=== PATIENT | male | born 2000 | race Caucasian/White ===

== ENCOUNTER 2021-09-09 10:19 | Emergency (ER) | payer OTHER, SELFPAY ==
[2021-09-09] MEDS: TETRACAINE 0.5% OPHTH 1 DROP EYE-LEFT ×2 (10:35)
[2021-09-09] MEDS: GENTAMICIN 0.3% OPHTH 1 DROP EYE-LEFT (10:35)
[2021-09-09] MEDS: FLUORESCEIN SODIUM TOPICAL STRIP 1 STRIP EYE-LEFT (10:35)
[2021-09-09 10:39] VITALS: BP 145/94; PULSE 97; RESP 16; TEMP 36.3; O2SAT 97; BMI 25.0
--- NOTE | 2021-09-09 10:54 | ED.GENADULT ---
HPI - General Adult General Time Seen by Provider: 10:53 Date Seen: 09/09/21 Chief complaint: Eye Problems Stated complaint: Irritation left eye Time Seen by Provider: 09/09/21 10:40 Source: patient Mode of arrival: ambulatory Limitations: no limitations History of Present Illness HPI narrative: Patient is a 20 year white male who has had a contact in over the last month took them out when his left eye became red it has been irritated and scratched scratchy feeling. His gross visual acuity is good he has no significant pain. Denies foreign body sensation. Was bothered by the redness and irritation presents to the ED. Related Data Home Medications Medication Instructions Recorded Confirmed No Known Home Medications 09/09/21 09/09/21 Allergies Allergy/AdvReac Type Severity Reaction Status Date / Time No Known Drug Allergies Allergy Verified 09/09/21 10:38 Review of Systems Status of ROS: Reports: 6 or more systems reviewed and unremarkable except as noted in History and below Exam Narrative: Exam Narrative: Objective: The patient's gross visual acuity is fairly normal in left eye, he does report a little bit of blurriness, his left eye conjunctiva is reddened after anesthetic drops placed and fluorescein staining done no foreign body or corneal abrasion could be noted. Gentamicin ophthalmic drop was placed x1 Const: Vital Signs, click to edit/add: Vital Signs - 24 hr 09/09/21 10:39 Temperature 97.4 F L Pulse Rate [Pulse Oximeter] 97 Respiratory Rate 16 Blood Pressure [Ri ght Upper Arm] 145/94 H Pulse Oximetry 97 Course Vital Signs Vital signs: Initial Vital Signs Temperature 97.4 F L 09/09/21 10:39 Temperature Source Temporal Artery Scan 09/09/21 10:39 Pulse Rate 97 09/09/21 10:39 Respiratory Rate 16 09/09/21 10:39 Blood Pressure 145/94 H 09/09/21 10:39 Blood Pressure Mean 111 09/09/21 10:39 Blood Pressure Position Sitting 09/09/21 10:39 Pulse Oximetry 97 09/09/21 10:39 Oxygen Delivery Method 09/09/21 10:39 Vital Signs Temperature 97.4 F L 09/09/21 10:39 Pulse Rate 97 09/09/21 10:39 Respiratory Rate 16 09/09/21 10:39 Blood Pressure 145/94 H 09/09/21 10:39 Pulse Oximetry 97 09/09/21 10:39 Temperature 97.4 F L 09/09/21 10:39 Pulse Rate 97 09/09/21 10:39 Respiratory Rate 16 09/09/21 10:39 Blood Pressure 145/94 H 09/09/21 10:39 Pulse Oximetry 97 09/09/21 10:39 Medical Decision Making MDM Narrative Medical decision making narrative: The patient has conjunctivitis of the left eye, no evidence of corneal abrasion on fluorescein staining, no evidence of foreign body. He will keep his contacts out for the next week, and use gentamicin eye drops 1 drop t.i.d. to the left eye x4 5 days. He will if not improved in the next 48 hours be seen by Optometry. He and his family are comfortable plan. Tylenol Advil as needed, he reports he is up-to-date on immunizations Discharge Plan Discharge Clinical Impression: Bacterial conjunctivitis Patient Disposition: Home w/ Parent or Adult Condition: Stable Additional Instructions: Patient will follow-up with optometry in the next 24 hours if not improving, keep his contacts out for a week, avoid trauma to the eye for the next several hours as it has been anesthetized. Tylenol or Advil as needed, gentamicin drops 1 drop t.i.d. to the left eye x5 days, medication dispensed from the eye tray. Activity Level: Activity as Tolerated Prescriptions: No Action No Known Home Medications 0RF Follow Up/Referrals: Provider,Not a Local [Primary Care Provider] - Stand Alone Forms: [employer] Info Instructions
== END 2021-09-09 11:10 ==
PROVIDERS: Emergency Provider Family Medicine
DX: H10.022 Other mucopurulent conjunctivitis, left eye (principal)
CPT/HCPCS: 99283; A9270

== ENCOUNTER 2021-12-08 23:20 | Emergency (ER) | payer OTHER, SELFPAY ==
--- NOTE | 2021-12-08 23:52 | ED_ITS ---
HPI - General Adult General Time Seen by Provider: 23:52 Date Seen: 12/08/21 Chief complaint: Eye Problems Stated complaint: INFECTED RIGHT EYE Time Seen by Provider: 12/08/21 23:52 Source: patient Mode of arrival: ambulatory Limitations: no limitations History of Present Illness HPI narrative: Patient presents with right eye pain and redness that started about an hour ago. He took out his contacts and approximately an hour later started having pain. No known injury. No vision changes. Has not taken anything for the pain. Related Data Home Medications Medication Instructions Recorded Confirmed No Known Home Medications 09/09/21 09/09/21 Allergies Allergy/AdvReac Type Severity Reaction Status Date / Time No Known Drug Allergies Allergy Verified 09/09/21 10:38 Review of Systems Status of ROS: Reports: 10 or more systems reviewed and unremarkable except as noted in History and below PFSH PFS Social History Smoking Status: Current every day smoker Do you use any of these nicotine containing products: E-Cigarettes Second hand tobacco smoke exposure: No How often do you have a drink containing alcohol: 2-3 times a week How many standard drinks containing alcohol do you have on a typical day: 1 or 2 AUDIT-C Alcohol total score: 3 Non-prescribed substance use: denies use service: No Exam Narrative: Exam Narrative: General: well nourished , NAD Head: Atraumatic and normocephalic ENT: External ears and external nose are normal Eyes: Diffuse, nonfocal conjunctival injection on the right. Under fluorescein exam, no abrasions or uptake. Pupils reactive Neck: Full spontaneous range of motion of the neck Lungs: No respiratory distress Musculoskeletal: No tenderness or deformity Neurologic: No gross focal neurologic deficits Skin: No rashes Psych: Mood and affect are appropriate Const: Vital Signs, click to edit/add: Vital Signs - 24 hr 12/08/21 23:54 Temperature 98.8 F Pulse Rate [Pulse Oximeter] 89 Respiratory Rate 18 Blood Pressure [Ri ght Upper Arm] 152/112 H Pulse Oximetry 100 Oxygen Delivery Me thod Room Air Course Course Hospital Course: Patient seen examined, prior records reviewed. Patient presents with right eye irritation after take his contacts out night. No visible corneal abrasion or foreign body. Global diffuse erythema of the right eye. Given onset after remove the contacts, this sounds like it could be irritation from something that was on the finger when the contact was taken out. Patient will be given erythromycin ointment for possible conjunctivitis although abrupt onset makes this unlikely. No ciliary flush, pupil is reactive, acute angle closure glaucoma is unlikely. Vital Signs Vital signs: Initial Vital Signs Temperature 98.8 F 12/08/21 23:54 Temperature Source Temporal Artery Scan 12/08/21 23:54 Pulse Rate 89 12/08/21 23:54 Respiratory Rate 18 12/08/21 23:54 Blood Pressure 152/112 H 12/08/21 23:54 Blood Pressure Mean 125 12/08/21 23:54 Pulse Oximetry 100 12/08/21 23:54 Oxygen Delivery Method 12/08/21 23:54 Vital Signs Temperature 98.8 F 12/08/21 23:54 Pulse Rate 89 12/08/21 23:54 Respiratory Rate 18 12/08/21 23:54 Blood Pressure 152/112 H 12/08/21 23:54 Pulse Oximetry 100 12/08/21 23:54 Oxygen Delivery Method 12/08/21 23:54 Temperature 98.8 F 12/08/21 23:54 Pulse Rate 89 12/08/21 23:54 Respiratory Rate 18 12/08/21 23:54 Blood Pressure 152/112 H 12/08/21 23:54 Pulse Oximetry 100 12/08/21 23:54 Oxygen Delivery Method 12/08/21 23:54 Medical Decision Making Medical Records Medical records reviewed: Yes I reviewed the patient's medical records Lab Data Lab results reviewed: Yes I reviewed the patient's lab results Discharge Plan Discharge Clinical Impression: Conjunctivitis Patient Disposition: Home, Self-Care Condition: Stable Instructions: Conjunctivitis (ED) Additional Instructions: Cool packs for comfort. Tylenol or ibuprofen for pain. Antibiotic ointment as prescribed. Follow-up with eye doctor in the next 2-3 days. Activity Level: No Restrictions Discharge Diet: Regular Prescriptions: No Action No Known Home Medications Follow Up/Referrals: Provider,Not a Local [Primary Care Provider] - Stand Alone Forms: [employer] Info Instructions
[2021-12-08 23:54] VITALS: BP 152/112; PULSE 89; RESP 18; TEMP 37.1; O2SAT 100; BMI 24.2
--- OUTSIDE RECORDS SUMMARY | 2021-12-09 00:13 | XMS_ITS | Clinical Summary ---
:2000 Author Organization [facility] [place] [address] Care Team Providers Name Role Phone Dylan Brown Primary Care Provider [phone] Allergies No known active allergies Medications No known medications Active Problems Problem Noted Date Controlled substance agreement signed 11/24/2017 Anxiety 04/03/2017 ADHD, hyperactive-impulsive type 12/13/2012 Resolved Problems Problem Noted Date Resolved Date Depressive disorder, not elsewhere classified 03/25/2012 12/13/2012 Anxiety state, unspecified 03/25/2012 12/13/2012 Anxiety state, unspecified 03/25/2012 04/03/2017 Benign heart murmur 12/13/2012 Overview: DOES NOT NEED SBE PROPHYLAXIS Immunizations Name Administration Dates Next Due AMB Influenza, IIV3 (Age >=3 01/05/2008 years)(Flu Clinic Only) DTP-HIB 12/27/2001 DTaP 02/04/2001, 2000, 2000 DTaP-IPV (Kinrix) 02/16/2009, 01/30/2009 HIB PRP-T (ActHIB,Hiberix) 12/27/2001 HIB-HepB (Comvax) 2000, 2000 HPV 9 (Gardasil 9) 12/11/2016, 01/01/2016, 07/12/2015 Hepatitis A (Peds) 07/12/2015, 11/14/2014 Hepatitis B (Peds) 04/28/2001 Inactivated Polio Vaccine 12/27/2001, 2000, 2000 Influenza, IIV3 (Age >=3 years) 12/13/2012, 02/24/2012, 01/08 Influenza, IIV4 11/24/2017, 12/11/2016, 01/01/2016 MMR 01/30/2009, 08/27/2001 Meningococcal Vaccine (Menveo) 12/11/2016, 11/14/2014 Pneumococcal conj 7-Valent (Prevnar 7) 08/22/2002, 1, 2000, 2000 Tdap 12/13/2012 Varicella Vaccine 01/30/2009, 08/27/2001 Social History Tobacco Use Types Packs/Day Years Used Date Never Smoker Smokeless Tobacco: Never Used Tobacco Cessation: Counseling Given: Yes Alcohol Use Standard Drinks/Week Comments No 0 (1 standard drink = 0.6 oz pure alcoho l) Sex Assigned at Date Recorded Not on file Obstetrics History Last Filed Vital Signs Vital Sign Reading Time Taken Comments Blood Pressure 144/94 11/24/2020 12:14 AM CDT Pulse 90 11/24/2020 12:14 AM CDT Temperature 36.4 ??C (97.6 ??F) 11/24/2020 12:14 AM CDT Respiratory Rate 16 11/24/2020 12:14 AM CDT Oxygen Saturation 99% 11/24/2020 12:14 AM CDT Inhaled Oxygen Concentration - - Weight 72.6 kg (160 lb) 11/24/2020 12:14 AM CDT Height 165.1 cm (5' 5) 11/24/2020 12:14 AM CDT Body Mass Index 26.63 11/24/2020 12:14 AM CDT Plan of Treatment Health Maintenance Due Date Last Done Comments COVID-19 vaccine series (#1) 01/08/2001 Hepatitis C screening for age 0507/08/2018 18-79 Depression screening for age 12+ 02/08/2019 02/08/2018, , 07/07/2017, Additional history exists BMI (ht and wt on same day) for 07/09/2021 07/09/2020 age 18+ Influenza for age 9-49 11/07/2021 11/24/2017, 12/11/2016, 01/01/2016, Additional history exists Tetanus booster 12/13/2022 12/13/2012 Tdap Completed 12/13/2012 HPV series for age 9-26 Completed 12/11/2016, 01/01/2016, 07/12/2015 Meningococcal series for age 11-21 Completed 12/11/2016, 0 11/14/2014 Results Not on filefrom Last 3 Months Insurance Payer Benefit Plan / Subscriber ID Effective Dates Phone Addre ss Type Group PREFERRED ONE PREFERRED ONE [id number] 2015-Present [address] [place] [address] [facility] Contract Other 03/09/2011 [place] [employer] (Home) [address] [place] [place] [address] Care Teams Rn X Ray Relationship Specialty Start Date End Date Dylan Brown PA PCP - General Physician Editor At Large 07/09/20
[2021-12-09] MEDS: FLUORESCEIN SODIUM TOPICAL STRIP 1 STRIP EYE-BOTH (00:38)
[2021-12-09] MEDS: TETRACAINE 0.5% OPHTH 1 DROP EYE-RIGHT (00:39)
--- NOTE | 2021-12-09 00:39 | ED.NURSE ---
Erythromycin ointment labeled and sent with patient.
== END 2021-12-09 00:50 | disposition home or self-care (01) ==
LOC: ED 12-09 00:12
PROVIDERS: Emergency Provider Family Medicine
DX: H10.9 Unspecified conjunctivitis (principal)
CPT/HCPCS: 99282; 99283; A9270

== ENCOUNTER 2022-01-16 06:41 | Emergency (ER) | payer OTHER, SELFPAY ==
[2022-01-16] VITALS (16 sets, daily range): BP systolic 123–141; BP diastolic 78–112; PULSE 98–116; RESP 20; TEMP 37.1; O2SAT 96–99; BMI 24.2
--- NOTE | 2022-01-16 07:12 | CRLHL7_ITS ---
For Patients: As a result of the Century Cures Act, medical imaging exams and procedure reports are released immediately into your electronic medical record. You may view this report before your referring provider. If you have questions, please contact your health care provider. INDICATION: Chest pain. TECHNIQUE: Chest 1 views. COMPARISON: None. FINDINGS: Cardiovascular and mediastinum: Heart size and vasculature are normal in caliber and appearance. Lungs and pleural spaces: Lungs are clear. No sign of infiltrate. No sign of pleural effusion. No pneumothorax. Bones and soft tissues: No significant findings. IMPRESSION: No acute or significant findings. Dictated by Horace Rey MD @ 01/16/2022 7:59:40 AM (Electronically Signed)
--- NOTE | 2022-01-16 07:17 | ED.ARRPALP ---
HPI - Arrhythmia/Palpitations General Time Seen by Provider: 07:05 Date Seen: 01/16/22 Chief Complaint: Arrhythmia/Palpitations Stated Complaint: heart issue Time Seen by Provider: 01/16/22 07:10 Source: patient, RN notes reviewed and old records reviewed Mode of arrival: ambulatory Limitations: no limitations History of Present Illness HPI narrative: Maciel is a 21-year-old male with history of elevated alcohol use who comes to the emergency room with complaints of chest pain and rapid heart rate. Patient notes that he went to bed last night approximately 2100 hours and was awoken every 30 minutes to an hour with chest pain. He states this went on for hours overnight. This was associated with a pounding in his chest but no nausea or lightheadedness. He has never had this happen to him before. He states something is definitely wrong. In regards to his alcohol use he did not have any of the elder yesterday but did the day before. He notes that he is much better than the last time I saw him here in the emergency room and he has gone to detox since that time. However, he continues to use alcohol. He denies any other drug use or excessive caffeine. He does note that both of his parents have thyroid problems. He is not currently on any medications. At this time chest pain has resolved but he still feels like his heart is racing. When asked about trauma patient states a week ago he and his significant other were arguing about having the fan on. When he got out of bed to turn the fan on he tripped and fell and hit his head and then decided to sleep on the floor. I do ask him if he got knocked out and had loss of consciousness and he said ?pretty much?. No vomiting at that time. Related Data Home Medications Medication Instructions Recorded Confirmed No Known Home Medications 09/09/21 09/09/21 Allergies Allergy/AdvReac Type Severity Reaction Status Date / Time No Known Drug Allergies Allergy Verified 09/09/21 10:38 Review of Systems Status of ROS: Reports: 10 or more systems reviewed and unremarkable except as noted in History and below Narrative: No recent COVID symptoms. Const: Denies: fever or chills Eyes: Denies: change in vision ENMT: Denies: throat pain, neck pain or difficulty swallowing Cardio: Reports: chest pain and palpitations; Denies: edema, swelling of feet/ankles or shortness of breath with exertion Resp: Denies: shortness of breath or cough GI: Reports: abdominal pain (Occasional left-sided abdominal pain.) and blood in stool (Occasionally but none today); Denies: nausea, vomiting or difficulty swallowing : Denies: painful urination Musculo: Denies: back pain or neck pain Integ/Breast: Denies: rash Neuro: Denies: headache or numbness in extremities Psych: Reports: anxiety Endo: Denies: excessive urination PFSH PFSH Social History Smoking Status: Current every day smoker Do you use any of these nicotine containing products: E-Cigarettes and Vaping Products Second hand tobacco smoke exposure: No How often do you have a drink containing alcohol: 2-3 times a week How many standard drinks containing alcohol do you have on a typical day: 3 or 4 How often do you have six or more drinks on one occasion: Never AUDIT-C Alcohol total score: 4 Non-prescribed substance use: denies use service: No Exam Narrative: Exam Narrative: Patient is alert and oriented. Very talkative and dramatic. Eyes are clear. Head is atraumatic normocephalic. No midline cervical tenderness and range of motion is full. He is not guarded in movement. EOM is full and pupils are equal round and reactive. Oral cavity with moist mucous membranes. Face is symmetrical. Neck is supple without lymphadenopathy or thyromegaly. Heart with a tachycardic rate and normal rhythm. Rather hyperdynamic. No murmurs or rubs noted. Lungs are clear to auscultation. Abdomen is soft there is some tenderness noted in the left lateral abdomen but this is not consistent findings. Lower extremities without edema or calf tenderness. Const: Vital Signs, click to edit/add: Vital Signs - 24 hr 01/16/22 06:59 01/16/22 07:10 01/16/22 07:33 Temperature 98.7 F Pulse Rate 110 H Pulse Rate [Left P ulse Oximeter] 103 H Respiratory Rate 20 Blood Pressure Blood Pressure [Le ft Upper Arm] 131/90 H Pulse Oximetry 98 98 96 Oxygen Delivery Me thod Room Air 01/16/22 07:34 01/16/22 07:35 01/16/22 08:00 Temperature Pulse Rate 105 H 110 H 104 H Pulse Rate [Left P ulse Oximeter] Respiratory Rate Blood Pressure 141/91 H Blood Pressure [Le ft Upper Arm] Pulse Oximetry 96 97 96 Oxygen Delivery Me thod 01/16/22 08:02 01/16/22 08:30 01/16/22 08:33 Temperature Pulse Rate 108 H 98 104 H Pulse Rate [Left P ulse Oximeter] Respiratory Rate Blood Pressure 129/78 123/112 H Blood Pressure [Le ft Upper Arm] Pulse Oximetry 98 96 98 Oxygen Delivery Me thod 01/16/22 09:00 01/16/22 09:02 Temperature Pulse Rate 112 H 105 H Pulse Rate [Left P ulse Oximeter] Respiratory Rate Blood Pressure 130/81 Blood Pressure [Le ft Upper Arm] Pulse Oximetry 96 99 Oxygen Delivery Me thod Documenting provider has reviewed patient's vital signs: yes Course Course Hospital Course: Patient is noted to have sinus tachycardia and complained of chest pain throughout the night. No evidence of hypoxia and patient is afebrile. Will obtain serial EKG and troponin and continue cardiac monitoring. Chest x-ray and blood work to include a CBC, comprehensive panel, CRP, urinalysis. No history of DVT, recent extended travel, lower extremity edema or hypoxia. Vital Signs Vital signs: Initial Vital Signs Temperature 98.7 F 01/16/22 06:59 Temperature Source Temporal Artery Scan 01/16/22 06:59 Pulse Rate 103 H 01/16/22 06:59 Pulse Rhythm 01/16/22 06:59 Respiratory Rate 20 01/16/22 06:59 Blood Pressure 131/90 H 01/16/22 06:59 Blood Pressure Mean 103 01/16/22 06:59 Blood Pressure Position Sitting 01/16/22 06:59 Pulse Oximetry 98 01/16/22 06:59 Oxygen Delivery Method 01/16/22 06:59 Vital Signs Temperature 98.7 F 01/16/22 06:59 Pulse Rate 103 H 01/16/22 06:59 Respiratory Rate 20 01/16/22 06:59 Blood Pressure 131/90 H 01/16/22 06:59 Pulse Oximetry 98 01/16/22 06:59 Oxygen Delivery Method 01/16/22 06:59 Temperature 98.7 F 01/16/22 06:59 Pulse Rate 105 H 01/16/22 09:02 Respiratory Rate 20 01/16/22 06:59 Blood Pressure 130/81 01/16/22 09:02 Pulse Oximetry 99 01/16/22 09:02 Oxygen Delivery Method 01/16/22 06:59 MDM - Arrhythmia/Palpitations MDM Narrative Medical decision making narrative: 1. Sinus tachycardia-treated with 2 L of fluid. Patient had negative troponin x2 and no evidence of ST or T-wave changes. He continues to be tachycardic above 100. When agitated or talking he does get up to 120. He states that he is always anxious and he really does want to go. He does adamantly denies any drug use to include methamphetamines or cocaine. He is noted to have had a vape with him that accidentally fell out of his pocket during his stay here. He declined to leave a urine sample or was unable to leave 1. I did speak to him about the use of a beta-nai but he declines this at this time. He also does not wish to stay here any longer and wants to go home. I have asked him to return for increasing symptoms. He has had no chest pain and is asymptomatic to his tachycardia at this time. It does appear to be sinus. TSH within normal limits. 2. Alcohol misuse-no alcohol use yesterday and patient states he has recently been to detox. 3. Abdominal discomfort abdominal exam is inconsistent and labs are reassuring with a normal white count amylase and lipase. 4. Disposition-patient is going to be discharged home. He did initially drive here but I have told him that he is not able to drive home given his alcohol level. Patient will receive 2nd dose of Ativan 0.5 mg IV along with oral thiamin, folate and a multivitamin. Again, offered to allow him to stay with continued monitoring or treatment with beta nai and he does declined both. Is requesting a note for work which I will provide for him today. At this time oxygen saturations are reassuring, no recent history that would suggest inactivity, pain in calves or otherwise. There is no rub or evidence of pericarditis on EKG. I believe this most likely stems from his alcohol use and anxiety. Medical Records Attestation: I reviewed the patient's medical records. Lab Data Attestation: I reviewed the patient's lab results. Labs: Lab Results 01/16/22 01/16/22 01/16/22 Range/Units 07:30 07:30 07:30 WBC 4.78 (4.50-11.00) K/uL RBC 5.07 (4.30-5.90) m/uL Hgb 16.2 (13.5-17.5) gm/dL Hct 46.8 (37.0-53.0) % MCV 92 (80-100) fL MCH 32 (26-34) pg MCHC 35 (32-36) gm/dL RDW Coeff of Ailyn 11.3 L (11.5-15.5) % Plt Count 252 (140-440) K/uL Neut % (Auto) 44.0 (42.0-72.0) % Lymph % (Auto) 43.1 (20-44) % [place] % (Auto) 10.0 (0.0-11.0) % Eos % (Auto) 1.9 (0.0-7.0) % Baso % (Auto) 0.6 (0.0-3.0) % Neut # (Auto) 2.10 (1.7-7.0) K/uL Lymph # (Auto) 2.06 (0.90-2.90) K/uL [place] # (Auto) 0.50 (0.00-0.90) K/UL Eos # (Auto) 0.09 (0.00-0.50) K/uL Baso # (Auto) 0.03 (0.00-0.30) K/uL Abs Immat Gran (auto) 0.02 (0.00-0.30) K/uL Imm/Tot Granulo (auto) 0.4 % Sodium 147 (135-149) mmol/L Potassium 4.1 (3.6-5.1) mmol/L Chloride 107 (96-114) mmol/L Carbon Dioxide 29 (20-32) mmol/L BUN 9 (5-24) mg/dL Creatinine 0.8 (0.5-1.5) mg/dL Estimated Creat Clear 131.81 Estimated GFR 129 ml/min Glucose 108 (60-115) mg/dL Calcium 9.0 (8.4-10.6) mg/dL Magnesium (1.5-2.6) mg/dL Total Bilirubin 0.3 (0.1-1.5) mg/dL AST 91 H (12-35) U/L ALT 140 H (4-50) U/L Alkaline Phosphatase 103 (40-150) U/L Total Protein 8.1 (6.0-8.3) g/dL Albumin 5.1 H (3.3-5.0) g/dL Amylase 86 (18-89) U/L Lipase 57 (23-300) U/L TSH 1.410 (0.270-4.200) uIU/mL Ethyl Alcohol 0.21 H (0.01-0.03) % POC Troponin I (0.01-0.04) ng/ml 01/16/22 01/16/22 Range/Units 07:30 09:00 WBC (4.50-11.00) K/uL RBC (4.30-5.90) m/uL Hgb (13.5-17.5) gm/dL Hct (37.0-53.0) % MCV (80-100) fL MCH (26-34) pg MCHC (32-36) gm/dL RDW Coeff of Ailyn (11.5-15.5) % Plt Count (140-440) K/uL Neut % (Auto) (42.0-72.0) % Lymph % (Auto) (20-44) % [place] % (Auto) (0.0-11.0) % Eos % (Auto) (0.0-7.0) % Baso % (Auto) (0.0-3.0) % Neut # (Auto) (1.7-7.0) K/uL Lymph # (Auto) (0.90-2.90) K/uL [place] # (Auto) (0.00-0.90) K/UL Eos # (Auto) (0.00-0.50) K/uL Baso # (Auto) (0.00-0.30) K/uL Abs Immat Gran (auto) (0.00-0.30) K/uL Imm/Tot Granulo (auto) % Sodium (135-149) mmol/L Potassium (3.6-5.1) mmol/L Chloride (96-114) mmol/L Carbon Dioxide (20-32) mmol/L BUN (5-24) mg/dL Creatinine (0.5-1.5) mg/dL Estimated Creat Clear Estimated GFR ml/min Glucose (60-115) mg/dL Calcium (8.4-10.6) mg/dL Magnesium 2.1 (1.5-2.6) mg/dL Total Bilirubin (0.1-1.5) mg/dL AST (12-35) U/L ALT (4-50) U/L Alkaline Phosphatase (40-150) U/L Total Protein (6.0-8.3) g/dL Albumin (3.3-5.0) g/dL Amylase (18-89) U/L Lipase (23-300) U/L TSH (0.270-4.200) uIU/mL Ethyl Alcohol (0.01-0.03) % POC Troponin I 0.00 L (0.01-0.04) ng/ml Imaging Data Chest x-ray: Attestation: I have reviewed the pertinent imaging results. My impression: No acute findings. No evidence of mediastinal widening. Radiologist's impression: Cardiovascular and mediastinum:? Heart size and vasculature are normal in caliber and appearance.? Lungs and pleural spaces:? Lungs are clear.? No sign of infiltrate. No sign of pleural effusion.? No pneumothorax.? Bones and soft tissues:? No significant findings. IMPRESSION: No acute or significant findings. ECG Data Attestation: I personally reviewed and interpreted this ECG as follows: ECG interpretation date: 01/16/22 Interpretation: EKG 1. By my read shows sinus tachycardia at a rate of 103. No evidence of acute ST or T-wave changes. Discharge Plan Discharge Clinical Impression: Anxiety, Sinus tachycardia Patient Disposition: Home, Self-Care Condition: Improved Additional Instructions: Think about decreasing alcohol use. Do your best to push fluids today and to relax. Do not hesitate to return for return of symptoms or persistently elevated heart rate. return as needed Prescriptions: No Action No Known Home Medications Follow Up/Referrals: Provider,Not a Local [Primary Care Provider] - Stand Alone Forms: [employer] Info Instructions
[2022-01-16] MEDS: 0.9 % SODIUM CHLORIDE 1000 ml 1,000 ML IV ×2 (07:40→08:45)
--- OUTSIDE RECORDS SUMMARY | 2022-01-16 07:40 | XMS_ITS | Clinical Summary ---
:2000 Author Organization [facility] [place] [address] Care Team Providers Name Role Phone Dylan Brown Primary Care Provider [phone] Allergies No known active allergies Medications No [...] ss Type Group PREFERRED ONE PREFERR[facility] ONE [id number] 2015-Present [address] [place] [address] [facility] Contract Other 03/09/2011 [place] [facility] [address] [place] [id number] Care Teams Tool Grinder Operator Relationship Specialty Start Date End Date Dylan Brown PA PCP - General Physician Delicatessen Clerk 07/09/20
[2022-01-16 07:48] LABS: Basophils Absolute Auto 0.03 K/uL (0.00-0.30); Basophils Percent Auto 0.6 % (0.0-3.0); Eosinophils Absolute Auto 0.09 K/uL (0.00-0.50); Eosinophils Percent Auto 1.9 % (0.0-7.0); Hematocrit 46.8 % (37.0-53.0); Hemoglobin* 16.2 gm/dL (13.5-17.5); Immature Granulocytes Abs Auto 0.02 K/uL (0.00-0.30); Immature Granulocytes Pct Auto 0.4 %; Lymphocytes Absolute Auto 2.06 K/uL (0.90-2.90); Lymphocytes Percent Auto 43.1 % (20-44); Mean Corpuscular HGB Conc 35 gm/dL (32-36); Mean Corpuscular Hemoglobin 32 pg (26-34); Mean Corpuscular Volume 92 fL (80-100); Platelet Count* 252 K/uL (140-440); RDW Coefficient of Variation % 11.3 % (11.5-15.5); Red Blood Count 5.07 m/uL (4.30-5.90); White Blood Count* 4.78 K/uL (4.50-11.00)
[2022-01-16 07:51] LABS: Slide Review Reflex No
[2022-01-16 08:07] LABS: Albumin* 5.1 g/dL (3.3-5.0); Chloride* 107 mmol/L (96-114); Potassium* 4.1 mmol/L (3.6-5.1); Sodium* 147 mmol/L (135-149)
[2022-01-16 08:09] LABS: Magnesium* 2.1 mg/dL (1.5-2.6)
[2022-01-16 08:10] LABS: Alanine Aminotransferase* 140 U/L (4-50); Alkaline Phosphatase* 103 U/L (40-150); Amylase* 86 U/L (18-89); Aspartate Amino Transferase* 91 U/L (12-35); Bilirubin Total* 0.3 mg/dL (0.1-1.5); Blood Urea Nitrogen* 9 mg/dL (5-24); Carbon Dioxide* 29 mmol/L (20-32); Creatinine* 0.8 mg/dL (0.5-1.5); Est. Creatinine Clearance* 131.81; Estimated Glomerular Filt Rate 129 ml/min; Glucose* 108 mg/dL (60-115); Lipase* 57 U/L (23-300); Total Protein* 8.1 g/dL (6.0-8.3)
[2022-01-16 08:11] LABS: Ethanol* 0.21 % (0.01-0.03)
[2022-01-16] MEDS: LORazepam 2 MG/ML inj 0.5 MG IVP ×2 (08:40→10:13)
--- NOTE | 2022-01-16 08:50 | PC.NURSE ---
pt got up to use bathroom and when returns to room noted empty urine cup in bathroom, pt states, I thought I had to go but I couldn't go, noted vape pen fell out of pt pocket on floor prior to going to bathroom
[2022-01-16] MEDS: THIAMINE 100 MG TABLET PO (10:13)
[2022-01-16] MEDS: MULTIVITAMIN/MINERALS 1 TABLET 1 TAB PO (10:13)
[2022-01-16] MEDS: FOLIC ACID 1 MG TABLET PO (10:13)
== END 2022-01-16 11:01 | disposition home or self-care (01) ==
PROVIDERS: Emergency Provider Family Medicine
DX: F41.9 Anxiety disorder, unspecified (principal); R00.0 Tachycardia, unspecified
CPT/HCPCS: 36415; 71045; 80053; 80306; 81001; 82077; 82150; 83690; 83735; 84443; 85025; 93005; 94761; 96361; 96374; 96376; 99284; A9153; A9270; J2060; J7030

== ENCOUNTER 2022-11-30 01:11 | Emergency (ER) | payer OTHER, SELFPAY ==
[2022-11-30 01:27] VITALS: BP 122/70; PULSE 87; RESP 18; TEMP 37; O2SAT 95; BMI 28.2
--- NOTE | 2022-11-30 02:38 | ED_ITS ---
HPI - Chest Pain General Date Seen: 11/30/22 Chief Complaint: Chest Pain Stated Complaint: Chest Pain Time Seen by Provider: 11/30/22 01:41 Source: patient and family Mode of arrival: ambulatory Limitations: no limitations History of Present Illness HPI narrative: Patient is a 22-year-old gentleman who was in bed tonight, felt this heart skip a beat, this was associated with some chest discomfort. This went away, and came in because this in his words freaked him out. This lasted seconds, there is no radiation, He is not having chest pain now, he is able to walk and ambulate normally, denies any coughing, this did not occur with exertion, he has a history of chest pain in the past which she has attributed to anxiety. Has a history of PTSD, anxiety, and excessive alcohol use. MD complaint: chest pain Risk Factors Coronary artery disease risk factors: none Thoracic aortic dissection risk factors: none Related Data Home Medications Medication Instructions Recorded Confirmed No Known Home Medications 09/09/21 09/09/21 Allergies Allergy/AdvReac Type Severity Reaction Status Date / Time No Known Drug Allergies Allergy Verified 09/09/21 10:38 Review of Systems Status of ROS Reports: 10 or more systems reviewed and unremarkable except as noted in History and below PFSH PFS Social History Smoking Status: Current every day smoker Do you use any of these nicotine containing products: E-Cigarettes and Vaping Products Second hand tobacco smoke exposure: No How often do you have a drink containing alcohol: 2-3 times a week How many standard drinks containing alcohol do you have on a typical day: 3 or 4 How often do you have six or more drinks on one occasion: Never AUDIT-C Alcohol total score: 4 Non-prescribed substance use: denies use service: No Exam Narrative Exam Narrative: Patient is speaking normally, no problem with slurring words, oriented x3. Head eyes ears nose and throat exam show equal pupils, no scleral icterus, extraocular muscles are normal, no facial droop, speech is normal, trachea normal and midline. Thyroid normal midline palpable not enlarged. Chest shows symmetrical rise bilaterally, normal auscultation with no wheezes, no increased work of breathing, no overt bruising or lesions seen, no tenderness is noted on auscultation. Heart sounds normal with no S3-S4 no murmurs clicks or gallops. Abdomen shows no obvious masses or hepatosplenomegaly, no organomegaly, bowel sounds are normal in all quadrants. No tenderness is noted also in all quadrants. Upper and lower extremities show normal power, normal range of m otion, pulses are normal, sensations normal, fine motor movements are normal, pelvis is stable to rocking. Cervical spine shows normal range of motion, and palpably not tender. Thoracic spine shows normal range of motion, and palpably not tender, lumbar spine shows no tenderness to palpation percussion and is otherwise normal range of motion. Skin shows no rashes, petechiae or eccymosis. Const Vital Signs, click to edit/add: Vital Signs - 24 hr 11/30/22 01:27 Temperature 98.6 F Pulse Rate [Right Pulse Oximeter] 87 Respiratory Rate 18 Blood Pressure [Right Upper Arm] 122/70 Pulse Oximetry 95 Oxygen Delivery Method Room Air Documenting provider has reviewed patient's vital signs: yes Course Course ED Course: I had a long discussion with him and his partner, I believe he had a PVC and felt that Beat get skipped, he does not have any other signs tonight, of anything else going on, his anxiety likely is playing into this, I encouraged him to follow-up with a good family physician to discuss this, is alcohol use, his PTSD. He was comfortable this plan. And reassurance Vital Signs Vital signs: Initial Vital Signs Temperature 98.6 F 11/30/22 01:27 Temperature Source Temporal Artery Scan 11/30/22 01:27 Pulse Rate 87 11/30/22 01:27 Pulse Rhythm Regular 11/30/22 01:27 Respiratory Rate 18 11/30/22 01:27 Blood Pressure 122/70 11/30/22 01:27 Blood Pressure Mean 87 11/30/22 01:27 Pulse Oximetry 95 11/30/22 01:27 Oxygen Delivery Method Room Air 11/30/22 01:27 Vital Signs Temperature 98.6 F 11/30/22 01:27 Pulse Rate 87 11/30/22 01:27 Respiratory Rate 18 11/30/22 01:27 Blood Pressure 122/70 11/30/22 01:27 Pulse Oximetry 95 11/30/22 01:27 Oxygen Delivery Method Room Air 11/30/22 01:27 Temperature 98.6 F 11/30/22 01:27 Pulse Rate 87 11/30/22 01:27 Respiratory Rate 18 11/30/22 01:27 Blood Pressure 122/70 11/30/22 01:27 Pulse Oximetry 95 11/30/22 01:27 Oxygen Delivery Method Room Air 11/30/22 01:27 MDM - Chest Pain MDM Narrative Medical decision making narrative: During the evaluation of this patient I considered multiple differential diagnosis is. The life-threatening differential diagnosis include coronary disease/CT, pulmonary embolism, pneumothorax, pneumonia, and aortic dissection. Other differential diagnosis included but were not limited to pericarditis, myocarditis, chest wall pain, GERD, esophageal rupture, rib fracture contusion, pleurisy, as well as other etiologies. His heart score is 0, his EKG shows normal sinus rhythm with no acute ST wave changes. And comparison to old EKGs unchanged. Medical Records Data Attestation: I reviewed the patient's medical records. Discharge Plan Discharge Clinical Impression: History of anxiety, PVC's (premature ventricular contractions), Chest pain Patient Disposition: Home w/ Parent or Adult Condition: Stable Instructions: Chest Pain (DC), Premature Ventricular Contractions (ED), Chest Wall Pain (ED) Additional Instructions: Home, rest, reassurance given, follow-up with primary care suggested, referral given. Prescriptions: No Action No Known Home Medications Follow Up/Referrals: Ej Araujo MD [Staff Physician] - Provider,Not a Local [Primary Care Provider] - Stand Alone Forms: [employer] Info Instructions
== END 2022-11-30 02:29 | disposition home or self-care (01) ==
LOC: ED 02:10
PROVIDERS: Emergency Provider Family Medicine
DX: I49.3 Ventricular premature depolarization (principal); R07.9 Chest pain, unspecified; F41.9 Anxiety disorder, unspecified
CPT/HCPCS: 93005; 99283; 99284